=== PATIENT | male | born 1960 | race American Indian/Alaskan Native ===

== ENCOUNTER 2021-12-21 09:31 | Emergency (ER) | payer SELFPAY ==
--- NOTE | 2021-12-21 10:06 | Emergency Department Report ---
ED CPR HPI - General Stated Complaint: CARDIAC ARREST Time Seen by Provider: 12/21/21 09:42 - History of Present Illness Initial Comments: Patient was brought in by EMS in cardiac arrest. Patient is a pick up truck driver. He was at [employer]. Coworkers said that he had complained of some chest pain and acid reflux type symptoms. They then found him in the back of his rig having a generalized seizure. EMS was called for a seizure. They arrived on sc val and the patient was in the back of the truck. He was in cardiac arrest at that time. He had been in asystole or PEA the entire time. They had been doing CPR for 20 to 25 minutes without return of spontaneous circulation. They had dosed with multiple rounds of epinephrine as well as bicarb. A Davey device was doing compressions. They attempted intubation but were unsuccessful. They were bag ventilating the patient. ED Review of Systems ROS: Stated complaint: CARDIAC ARREST Other details as noted in HPI Comment: Unobtainable due to pts medical conditions (Cardiac arrest) ED Past Medical Hx - Past Medical History Additional medical history: Cannot be obtained for the patient secondary to cardiac arrest - Surgical History Additional Surgical History: Cannot be obtained for the patient secondary to cardiac arrest - Family History Family history: other (Cannot be obtained for the patient secondary to cardiac arrest) - Social History Substance Use Type: Other (Cannot be obtained for the patient secondary to cardiac arrest) ED Physical Exam - General Limitations: Physical Limitation (Cardiac arrest), Other (Patient was obese with abdominal distention. Davey device was in place. CPR was in progress. Patient was being bagged ventilated with a mask.) General appearance: other (Unresponsive) - Head Head exam: Present: atraumatic - Eye Eye exam: Present: other (Pupils were fixed at 4 mm). Absent: scleral icterus - ENT ENT exam: Present: normal external ear exam, other (Orotracheal tube in place) - Neck Neck exam: Present: other (Trachea midline without crepitus) - Respiratory Respiratory exam: Present: other (Apneic) - Cardiovascular Cardiovascular Exam: Present: other (Pulseless) - GI/Abdominal GI/Abdominal exam: Present: soft, distended, other (Tympanic) - Extremities Exam Extremities exam: Absent: pedal edema - Back Exam Back exam: Present: normal inspection - Neurological Exam Neurological exam: Present: other (Unresponsive. GCS 3T) - Psychiatric Psychiatric exam: Present: other (Unresponsive) - Skin Skin exam: Present: warm ED Course - Reevaluation(s) Reevaluation #1: 12/21/21 10:04 EMS was seen upon arrival. CPR was continued. Patient was given epinephrine here. He was also given Narcan. At the 2-minute pulse check, there was no return of spontaneous circulation. Patient was in asystole. Epinephrine was repeated. Glucose was noted. CPR was continued. Upon repeat pulse check, patient still had no spontaneous cardiac activity. He was asystolic. Bedside ultrasound showed no cardiac activity. Patient was pronounced. It was 9:36 AM. - Procedure Description Procedures done: Procedure note: Cardiac ultrasound. Indication: Cardiac arrest. Patient was supine on the bed. The small curvilinear probe was used in a left parasternal view to evaluate for cardiac activity. Patient had cardiac standstill. There is no pericardial effusion noted. Patient tolerated this without difficulty. Consent was implied. ED Medical Decision Making - Lab Data Rhythm strip: Asystole. Monitor observe 10 seconds. - Medical Decision Making Patient presents in cardiac arrest. He had at least 20 to 25 minutes of CPR prior to arrival. We continued CPR for a total of 6 minutes in the emergency department. Subsequent to that, the patient was pronounced. He remained in asystole. He had no return of spontaneous circulation. Etiology for cardiac arrest is unknown. Critical Care Time: No (Total CPR time was 6 minutes) Critical care attestation.: If time is entered above; I have spent that time in minutes in the direct care of this critically ill patient, excluding procedure time. ED Disposition Clinical Impression: Cardiac arrest Disposition: 20 Is pt being admited?: No Condition: Stable Referrals: PRIMARY CARE, [Primary Care Provider] - 3-5 Days
== END 2021-12-21 13:04 ==
LOC: ED 09:31
DX: I46.9 Cardiac arrest, cause unspecified (principal)
CPT/HCPCS: 82962; 92950; 99285